=== PATIENT | female | born 2000 | race Caucasian/White ===

== ENCOUNTER 2025-08-21 06:22 | Day surgery (SDC) | payer BC, SELFPAY ==
[2025-08-21] VITALS (9 sets, daily range): BP systolic 102–121; BP diastolic 63–73; BMI 22.6
[2025-08-21 12:35] LABS: HCG, Urine Qualitative Screen Negative
[2025-08-21] MEDS: NORMOSOL-R/PLASMALYTE-A 1000 IV (12:41)
[2025-08-21] MEDS: DILAUDID 0.25 MG IV (14:51)
[2025-08-21] MEDS: DILAUDID 0.5 MG IV (15:05)
[2025-08-21] MEDS: ZOFRAN 4 MG IV (15:56)
== END 2025-08-21 16:37 | disposition home or self-care (01) ==
LOC: SDS 06:22
PROVIDERS: ATTENDING PHYSICIAN Otolaryngology
DX: J35.01 Chronic tonsillitis (principal); J02.9 Acute pharyngitis, unspecified
CPT/HCPCS: 42826; 81025; 88304